=== PATIENT | female | born 1950 ===

== ENCOUNTER 2024-11-10 12:20 | Outpatient (CLI) | payer MEDICARE, OTHER, SELFPAY | END 2024-11-10 12:21 | disposition home or self-care (01) | LOC: AMB 11-11 12:25 | PROVIDERS: PCP Family Medicine; Visit Provider Family Medicine | DX: M54.9 Dorsalgia, unspecified (principal) | CPT/HCPCS: A0425; A0429 ==

== ENCOUNTER 2024-11-10 12:49 | Emergency (ER) | payer MEDICARE, OTHER, SELFPAY ==
[2024-11-10] VITALS (8 sets, daily range): BP systolic 99–121; BP diastolic 55–72; PULSE 59–76; RESP 16–24; TEMP 35.7; O2SAT 95–98
--- NOTE | 2024-11-10 13:28 | ED.GENADULT ---
HPI - General Adult General Chief complaint: Back Injury/Pain Stated complaint: fall Time Seen by Provider: 11/10/24 12:58 History of Present Illness HPI narrative: Sunday- was using her stand device and had a syncopal episode. Patient remembers it and did not fall (standing device caught her). Back pain getting worse and worse since then. No pain when not moving , but rating it an 8/10 with movement. Diarrhea started sunday as well- getting better per EMS. [facility] called- Covid neg, patient also reporting nausea and low appetite, increased weakness. 74-year-old woman presenting to the emergency department following a fall though it sounds as though did not completely fall being caught by her stand device. There was some sort of a near-syncopal event. Does have history of Parkinson's and atrial fibrillation. Clarifying with Roshni having diarrhea reportedly improving. She recalls sitting on the toilet. Was just staring straight ahead and then says her eyes move this way and then sounds like may have briefly passed out. No chest pain or shortness of breath. Increasing back pain since that time she thought maybe she aggravated stretching some how. No radicular symptoms. No history of seizures noted. Related Data Home Medications ?Medication ?Instructions ?Recorded ?Confirmed acetaminophen 500 mg capsule 1,000 mg PO TID PRN 11/10/24 11/10/24 apixaban 5 mg tablet 5 mg PO BID 11/10/24 11/10/24 carbidopa 25 mg-levodopa 100 mg 3 tab PO TID 11/10/24 11/10/24 tablet donepezil 10 mg tablet (Aricept) 10 mg PO QHS 11/10/24 11/10/24 duloxetine 60 mg capsule,delayed 60 mg PO DAILY 11/10/24 11/10/24 release (Cymbalta) furosemide 20 mg tablet 20 mg PO DAILY 11/10/24 11/10/24 levothyroxine 88 mcg tablet 88 mcg PO DAILY 11/10/24 11/10/24 (Euthyrox) loperamide 2 mg capsule 2 mg PO Q6H PRN 11/10/24 11/10/24 melatonin 3 mg capsule 3 mg PO HS PRN 11/10/24 11/10/24 metoprolol succinate 200 mg 200 mg PO HS 04/21/25 04/21/25 tablet,extended release 24 hr spironolactone 50 mg tablet 50 mg PO DAILY 11/10/24 11/10/24 Previous Rx's ?Medication ?Instructions ?Recorded amoxicillin 875 mg-potassium 1 tab PO BID 7 days #14 tabs 11/10/24 clavulanate 125 mg tablet oxycodone 5 mg tablet 5 mg PO TID PRN pain #12 tabs 11/10/24 Allergies Allergy/AdvReac Type Severity Reaction Status Date / Time cefaclor Allergy Unknown Verified 11/10/24 13:23 Review of Systems Status of ROS: Reports: 6 or more systems reviewed and unremarkable except as noted in History and below [facility] Social History Smoking Status: Never smoker How often do you have a drink containing alcohol: never AUDIT-C Alcohol total score: 0 Non-prescribed substance use: denies use Exam Narrative: Exam Narrative: Has been sleeping I think breathing with mouth open in into the room. Initial conversations difficult because her mouth is so dry. I would collect some water for her to drink and much easier to understand. Pleasant. Fully alert. Rare eye contact. Breathing easily. Lungs appear to be clear. Heart is in fairly regular rhythm. Regular rate. Right greater than left SI joint area pain. Straight leg raise of both legs results in more pain in the right side back elicited when raising the right. Abdomen is soft and nontender. Skin is warm and dry. No pitting edema in lower extremities. She is well-perfused. Const: Vital Signs, click to edit/add: Vital Signs - 24 hr 11/10/24 12:59 11/10/24 13:34 Temperature 96.3 F L Pulse Rate [Pulse Oximeter] 59 L 72 Respiratory Rate 18 18 Blood Pressure [Ri ght Forearm] 99/61 105/55 L Pulse Oximetry 95 96 Oxygen Delivery Me thod Room Air Room Air Documenting provider has reviewed patient's vital signs: yes Course Vital Signs Vital signs: Initial Vital Signs Temperature 96.3 F L 11/10/24 12:59 Temperature Source Temporal Artery Scan 11/10/24 12:59 Pulse Rate 59 L 11/10/24 12:59 Respiratory Rate 18 11/10/24 12:59 Blood Pressure 99/61 11/10/24 12:59 Blood Pressure Mean 73 11/10/24 12:59 Blood Pressure Position Semi-Fowlers 11/10/24 12:59 Pulse Oximetry 95 11/10/24 12:59 Oxygen Delivery Method Room Air 11/10/24 12:59 Vital Signs Temperature 96.3 F L 11/10/24 12:59 Pulse Rate 59 L 11/10/24 12:59 Respiratory Rate 18 11/10/24 12:59 Blood Pressure 99/61 11/10/24 12:59 Pulse Oximetry 95 11/10/24 12:59 Oxygen Delivery Method Room Air 11/10/24 12:59 Temperature 96.3 F L 11/10/24 12:59 Pulse Rate 72 11/10/24 13:34 Respiratory Rate 18 11/10/24 13:34 Blood Pressure 105/55 L 11/10/24 13:34 Pulse Oximetry 96 11/10/24 13:34 Oxygen Delivery Method Room Air 11/10/24 13:34 Medications Administered Medications: Discontinued Medications Generic Name Dose Route Start Last Admin Trade Name Freq PRN Reason Stop Dose Admin Acetaminophen 1,000 mg 11/10/24 13:50 11/10/24 13:57 Acetaminophen 500 Mg Tablet PO 11/10/24 13:51 1,000 mg ONCE ONE Administration Sodium Chloride 500 mls @ 500 mls/hr 11/10/24 13:49 11/10/24 14:58 0.9 % Sodium Chloride 500 Ml IV 11/10/24 14:48 Infused .Q1H ONE Infusion Ampicillin Sodium/Sulbactam 100 mls @ 200 mls/hr 11/10/24 15:32 11/10/24 16:43 Sodium 3 gm/ Sodium Chloride IVPB 11/10/24 15:33 Infused ONCE ONE Infusion Ibuprofen 600 mg 11/10/24 13:50 11/10/24 13:56 Ibuprofen 200 Mg Tablet PO 11/10/24 13:51 600 mg ONCE ONE Administration Lidocaine 1 patch 11/10/24 15:07 11/10/24 16:05 Lidocaine 5% Patch TRANSDERMA 11/10/24 15:08 1 patch ONCE ONE Administration Protocol Medical Decision Making MDM Narrative Medical decision making narrative: This may have been a vasovagal event in the setting of diarrhea. She is already somewhat lower heart rate. Is anticoagulated with a history of atrial fibrillation. Does seem to have a right SI joint pain which I can not exactly explain. No trauma noted either. I think it would be worth imaging for occult fracture perhaps of the lumbar spine. Anemia? Cardiac event? Check standard labs, urinalysis which might explain further weakness. Monitor on traffic monitor specialist. Remains in atrial fibrillation on EKG is noted below. Given singular dose of ibuprofen in the setting of anticoagulation would also acetaminophen. Lidocaine patch to the right SI joint Urine would suggest urinary tract infection. Considering allergy which did confirm include itchy palms and chest rash maybe 20 years ago cefaclor, given initial dose of Unasyn. On reassessment feels improved certainly at rest and improved discomfort with movement though still flares with movement. TECHNIQUE: CT lumbar spine without contrast. COMPARISON: None. FINDINGS: Vertebrae: Postsurgical changes of L4-5 posterior interbody fusion a disc prosthesis and an L4 laminectomy. There is lucency about the posterior aspect of the L5 left pedicle screw. There is age-indeterminate compression deformity T12 vertebral body with approximately 40 percent superior endplate height loss anteriorly. No other fractures. Normal alignment. Lumbar dextrocurvature with apex at L2. Discs and facet joints: There are diffuse degenerative changes in the disc spaces and facet joints. Extraspinal findings: Partially visualized hypodense focus in the left hepatic lobe measures at least 7.2 cm (8/36). IMPRESSION: 1. Postsurgical changes of L4-5 PLIF with lucency about the posterior aspect of the L5 left pedicle screw, indicating loosening. 2. Age-indeterminate T12 vertebral body compression fracture deformity with approximately 40 percent anterior height loss. 3. Partially visualized cystic focus in the left hepatic lobe measures at least 7.2 cm. No prior imaging available for comparison. While this may reflect a cyst, given its size, consider further evaluation with a dedicated hepatic ultrasound or MRI. Please note that all CT scans at this facility use dose modulation, iterative reconstruction, and/or weight-based dosing when appropriate to reduce radiation dose to as low as reasonably achievable. Dictated by Johnson Bhatt MD @ 11/10/2024 4:37:19 PM It is unclear to me about this liver lesion whether or not has been imaged before. I did initially order an ultrasound as she will be here for little more time but Roshni would prefer to not have any more done today and follow this up outpatient Friend arrives to offer further information. Evidently Roshni that with her and her for a year. Discussing expectations of pain management it sounds as though had tolerated oxycodone actually quite well. Was used sparingly. Please follow-up this liver lesion to determine whether not it has been characterized before. There may be some imaging already done and would mean that you do not have to repeat an ultrasound or do an MRI. Would discuss this with your primary care provider. Prescribing Augmentin for what appears to be urinary tract infection. Urine culture will be pending here. You also have an age indeterminate T12 compression fracture. This is not exactly in the area of your pain. You appear to have pain in the area the sacroiliac joint on the right more so than the left. We did place a lidocaine patch. You received acetaminophen and a little ibuprofen. Overall it sounds as though you are improved. If this lidocaine patch is helpful, you can purchase more [id number]. I am also sending you a small quantity of oxycodone as discussed. Medical Records Medical records reviewed: Yes I reviewed the patient's medical records Lab Data Lab results reviewed: Yes I reviewed the patient's lab results Labs: Lab Results 11/10/24 11/10/24 11/10/24 Range/Units 14:50 14:57 15:28 WBC 4.56 (4.50-11.00) K/uL RBC 4.02 (4.00-5.20) m/uL Hgb 11.5 L (12.0-16.0) gm/dL Hct 36.2 (33.0-51.0) % MCV 90 (80-100) fL MCH 29 (26-34) pg MCHC 32 (32-36) gm/dL RDW Coeff of [place] 15.2 (11.5-15.5) % Plt Count 164 (140-440) K/uL Neut % (Auto) 78.4 H (42.0-72.0) % Lymph % (Auto) 12.9 L (20-44) % [place] % (Auto) 7.7 (0.0-11.0) % Eos % (Auto) 0.4 (0.0-7.0) % Baso % (Auto) 0.2 (0.0-3.0) % Neut # (Auto) 3.60 (1.7-7.0) K/uL Lymph # (Auto) 0.60 L (0.90-2.90) K/uL [place] # (Auto) 0.40 (0.00-0.90) K/UL Eos # (Auto) 0.02 (0.00-0.50) K/uL Baso # (Auto) 0.01 (0.00-0.30) K/uL Abs Immat Gran (auto) 0.02 (0.00-0.30) K/uL Imm/Tot Granulo (auto) 0.4 % Sodium 132 L (135-149) mmol/L Potassium 4.0 (3.6-5.1) mmol/L Chloride 101 (96-114) mmol/L Carbon Dioxide 25 (20-32) mmol/L Anion Gap 6 L (7-15) mEq/L BUN 16 (7-30) mg/dL Creatinine 0.9 (0.5-1.5) mg/dL Estimated GFR 67 ml/min Glucose 126 H (60-115) mg/dL Calcium 8.9 (8.4-10.6) mg/dL Troponin I < 0.01 (0.01-0.04) ng/mL C-Reactive Protein 4.8 H (0.5-1.0) mg/dL Urine Color Yellow (Yellow) Urine Appearance Clear (Clear) Urine pH 5.5 (5.0-8.5) Ur Specific [place] <= 1.005 (1.000-1.030) Urine Protein Negative (Negative) Urine Glucose (UA) Negative (Negative) Urine Ketones Negative (Negative) Urine Blood Trace-intact A (Negative) Urine Nitrite Positive A (Negative) Urine Bilirubin Negative (Negative) Urine Urobilinogen 0.2 (0.2-1.0) Ur Leukocyte Esterase 1+ A (Negative) Urine RBC 0-2 (0-2) Urine WBC 10-25 A (0-5) Urine WBC Clumps Moderate A (None) Ur Squamous Epith Cells Few (None-Few) Amorphous Sediment Moderate A (None) Urine Bacteria Many A (None) Lab Acknowledgement Test Added ECG Data Attestation: I personally reviewed and interpreted this ECG as follows: (Atrial fibrillation rate 72) Discharge Plan Discharge Clinical Impression: Urinary tract infection, Weakness, Hepatic lesion, Thoracic compression fracture Patient Disposition: Home w/ Parent or Adult Condition: Improved Additional Instructions: Please follow-up this liver lesion to determine whether not it has been characterized before. There may be some imaging already done and would mean that you do not have to repeat an ultrasound or do an MRI. Would discuss this with your primary care provider. Prescribing Augmentin for what appears to be urinary tract infection. Urine culture will be pending here. You also have an age indeterminate T12 compression fracture. This is not exactly in the area of your pain. You appear to have pain in the area the sacroiliac joint on the right more so than the left. We did place a lidocaine patch. You received acetaminophen and a little ibuprofen. Overall it sounds as though you are improved. If this lidocaine patch is helpful, you can purchase more [id number]. I am also sending you a small quantity of oxycodone as discussed. Prescriptions: New oxycodone 5 mg tablet 5 mg PO TID PRN (Reason: pain) Qty: 12 0RF amoxicillin-pot clavulanate 875-125 mg tablet 1 tab PO BID 7 Days Qty: 14 0RF No Action carbidopa-levodopa 25-100 mg tablet 3 tab PO TID furosemide 20 mg tablet 20 mg PO DAILY spironolactone 50 mg tablet 50 mg PO DAILY apixaban 5 mg tablet 5 mg PO BID duloxetine [Cymbalta] 60 mg capsule,delayed release(DR/EC) 60 mg PO DAILY acetaminophen 500 mg capsule 1,000 mg PO TID PRN levothyroxine [Euthyrox] 88 mcg tablet 88 mcg PO DAILY metoprolol succinate 200 mg tablet extended release 24 hr 200 mg PO HS donepezil [Aricept] 10 mg tablet 10 mg PO QHS loperamide 2 mg capsule 2 mg PO Q6H PRN melatonin 3 mg capsule 3 mg PO HS PRN Follow Up/Referrals: Grupo Lockhart MD [Primary Care Provider] - Stand Alone Forms: [employer] Info Instructions
[2024-11-10] MEDS: IBUPROFEN 200 MG TABLET 600 MG PO (13:56)
[2024-11-10] MEDS: ACETAMINOPHEN 500 MG TABLET 1000 MG PO (13:57)
[2024-11-10] MEDS: 0.9 % SODIUM CHLORIDE 500 ML 500 ML IV (13:58)
--- NOTE | 2024-11-10 14:52 | CRLHL7_ITS ---
For Patients: As a result of the Century Cures Act, medical imaging exams and procedure reports are released immediately into your electronic medical record. You may view this report before your referring provider. If you have questions, please contact your health care provider. INDICATION: LBP. No trauma. TECHNIQUE: CT lumbar spine without contrast. COMPARISON: None. FINDINGS: Vertebrae: Postsurgical changes of L4-5 posterior interbody fusion a disc prosthesis and an L4 laminectomy. There is lucency about the posterior aspect of the L5 left pedicle screw. There is age-indeterminate compression deformity T12 vertebral body with approximately 40 percent superior endplate height loss anteriorly. No other fractures. Normal alignment. Lumbar dextrocurvature with apex at L2. Discs and facet joints: There are diffuse degenerative changes in the disc spaces and facet joints. Extraspinal findings: Partially visualized hypodense focus in the left hepatic lobe measures at least 7.2 cm (8/36). IMPRESSION: 1. Postsurgical changes of L4-5 PLIF with lucency about the posterior aspect of the L5 left pedicle screw, indicating loosening. 2. Age-indeterminate T12 vertebral body compression fracture deformity with approximately 40 percent anterior height loss. 3. Partially visualized cystic focus in the left hepatic lobe measures at least 7.2 cm. No prior imaging available for comparison. While this may reflect a cyst, given its size, consider further evaluation with a dedicated hepatic ultrasound or MRI. Please note that all CT scans at this facility use dose modulation, iterative reconstruction, and/or weight-based dosing when appropriate to reduce radiation dose to as low as reasonably achievable. Dictated by Johnson Bhatt MD @ 11/10/2024 4:37:19 PM (Electronically Signed)
[2024-11-10 14:56] LABS: Appearance Urine Clear (Clear); Bilirubin Urine Negative (Negative); Blood Urine Trace-intact (Negative); Color Urine Yellow (Yellow); Glucose Urine Negative (Negative); Ketones Urine Negative (Negative); Leukocyte Esterase Urine 1+ (Negative); Nitrite Urine Positive (Negative); Protein Urine Negative (Negative); Specific Gravity Urine <= 1.005 (1.000-1.030); Urobilinogen Urine 0.2 (0.2-1.0); pH Urine 5.5 (5.0-8.5)
[2024-11-10 15:09] LABS: Basophils Absolute Auto 0.01 K/uL (0.00-0.30); Basophils Percent Auto 0.2 % (0.0-3.0); Eosinophils Absolute Auto 0.02 K/uL (0.00-0.50); Eosinophils Percent Auto 0.4 % (0.0-7.0); Hematocrit 36.2 % (33.0-51.0); Hemoglobin* 11.5 gm/dL (12.0-16.0); Immature Granulocytes Abs Auto 0.02 K/uL (0.00-0.30); Immature Granulocytes Pct Auto 0.4 %; Lymphocytes Percent Auto 12.9 % (20-44); Mean Corpuscular HGB Conc 32 gm/dL (32-36); Mean Corpuscular Hemoglobin 29 pg (26-34); Mean Corpuscular Volume 90 fL (80-100); Monocytes Percent Auto 7.7 % (0.0-11.0); Neutrophils Percent Auto 78.4 % (42.0-72.0); Platelet Count* 164 K/uL (140-440); RDW Coefficient of Variation % 15.2 % (11.5-15.5); Red Blood Count 4.02 m/uL (4.00-5.20); White Blood Count* 4.56 K/uL (4.50-11.00)
[2024-11-10 15:15] LABS: Amorphous Sediment Urine Moderate; Bacteria Urine Many; RBC Urine 0-2 (0-2); Squamous Epithelial Cell Urine Few (None-Few)
[2024-11-10 15:17] LABS: Slide Review Reflex No
[2024-11-10 15:17] LABS: WBC Clumps Urine Moderate
[2024-11-10 15:26] LABS: Chloride* 101 mmol/L (96-114); Sodium* 132 mmol/L (135-149)
[2024-11-10 15:30] LABS: Anion Gap 6 mEq/L (7-15); Blood Urea Nitrogen* 16 mg/dL (7-30); Calcium* 8.9 mg/dL (8.4-10.6); Carbon Dioxide* 25 mmol/L (20-32); Creatinine* 0.9 mg/dL (0.5-1.5); Estimated Glomerular Filt Rate 67 ml/min; Glucose* 126 mg/dL (60-115)
[2024-11-10 15:33] LABS: C Reactive Protein* 4.8 mg/dL (0.5-1.0)
[2024-11-10] MEDS: LIDOCAINE 5% PATCH 1 PATCH TRANSDERMA (16:05)
[2024-11-10] MEDS: AMPICILLIN/SULBACTAM 3 GM in 0.9 % SODIUM CHLORIDE Mini-bag 100 ML IVPB (16:06)
[2024-11-10 16:34] LABS: Troponin I* < 0.01 ng/mL (0.01-0.04)
--- NOTE | 2024-11-10 18:46 | ED.NURSE ---
Patient able to gte own ride home in wheelchair van. Ride here and patient helped into wheelchair from 3 nursing staff. Discharge instructions provided and report given to [facility].
== END 2024-11-10 18:50 | disposition home or self-care (01) ==
PROVIDERS: Emergency Provider Family Medicine; PCP Family Medicine
DX: R55 Syncope and collapse (principal); N39.0 Urinary tract infection, site not specified; R53.1 Weakness; S22.000A Wedge compression fracture of unspecified thoracic vertebra, initial encounter for closed fracture; W19.XXXA Unspecified fall, initial encounter
CPT/HCPCS: 36415; 72131; 80048; 81001; 84484; 85025; 86140; 87086; 93005; 96365; 99284; 99285; A9270; J0295; J7030

== ENCOUNTER 2025-05-12 16:14 | Outpatient (REF) | payer MEDICARE, OTHER, SELFPAY ==
[2025-05-12 20:26] LABS: Appearance Urine Turbid (Clear)
== END 2025-05-12 16:15 | disposition home or self-care (01) ==
LOC: NPINS 16:14
PROVIDERS: PCP Family Medicine; Visit Provider Family Medicine
DX: R53.1 Weakness (principal); R41.0 Disorientation, unspecified
CPT/HCPCS: 81001; 81003; 87086